=== PATIENT | male | born 1990 | race Caucasian/White ===

== ENCOUNTER 2017-05-01 13:19 | Emergency (ER) | payer BC, OTHER ==
[2017-05-01] MEDS ORDERED: Ketorolac 60 MG/2 ML SDV IM ONE (13:34)
--- NOTE | 2017-05-01 14:02 | EDM.PDOC ---
ED HPI GENERAL MEDICAL PROBLEM - General Chief Complaint: Back Pain or Injury Stated Complaint: PT HAS BACK PAINS Time Seen by Provider: 05/01/17 13:35 Source of Information: Reports: Patient History Limitations: Reports: No Limitations - History of Present Illness INITIAL COMMENTS - FREE TEXT/NARRATIVE: History of present illness: [26 show male comes in complaining of low back pain. Indicates he's been struggling a couple weeks with that and that he had been seen and instructed he needs an MRI. Patient indicates he has a bad seat in his truck at work and that if his beta progressively worse.] Review of systems: As per history of present illness and below otherwise all systems reviewed and negative. Past medical history: As per history of present illness and as reviewed below otherwise noncontributory. Surgical history: As per history of present illness and as reviewed below otherwise noncontributory. Social history: No reported history of drug or alcohol abuse. Family history: As per history of present illness and as reviewed below otherwise noncontributory. Physical exam: HEENT: Atraumatic, normocephalic, pupils reactive, negative for conjunctival pallor or scleral icterus, mucous membranes moist, throat clear, neck supple, nontender, trachea midline. Lungs: Clear to auscultation, breath sounds equal bilaterally, chest nontender. Heart: S1S2, regular, negative for clicks, rubs, or JVD. Abdomen: Soft, nondistended, nontender. Negative for masses or hepatosplenomegaly. Negative for costovertebral tenderness. Pelvis: Stable nontender. Genitourinary: Deferred. Rectal: Deferred. Extremities: Atraumatic, negative for cords or calf pain. Neurovascular unremarkable. Neuro: Awake, alert, oriented. Cranial nerves II through XII unremarkable. Cerebellum unremarkable. Motor and sensory unremarkable throughout. Exam nonfocal. Global assessment is benign save the subjective complaint as noted in history of present illness patient does ambulate with a little bit of a guarded gait and sits at an angle while dialoguing Diagnostics: [] Therapeutics: [Toradol, Norflex] Impression: [Low back pain] Plan: [Prescription for Norflex meloxicam] Definitive disposition and diagnosis as appropriate pending reevaluation and review of above. Right Lower Back Pain Score (Numeric/FACES): 5 - Related Data Allergies Allergy/AdvReac Type Severity Reaction Status Date / Time No Known Allergies Allergy Verified 05/01/17 13:33 Home Meds: Home Meds Meloxicam 7.5 mg PO BID #30 tablet 05/01/17 [Rx] Orphenadrine [Norflex] 100 mg PO BID #28 tab.er 05/01/17 [Rx] Past Medical History Neurological History: Reports: Other (See Below) Other Neuro History: hx of c5 c6 spinus process fractures Social & Family History - Family History Family Medical History: Noncontributory - Tobacco Use Smoking Status *Q: Current Every Day Smoker Years of Tobacco use: 5 Packs/Tins Daily: 0.5 - Caffeine Use Caffeine Use: Reports: None - Recreational Drug Use Recreational Drug Use: No ED ROS GENERAL - Review of Systems Review Of Systems: See Below (See history of present illness) ED EXAM,LOWER BACK PAIN/INJURY - Physical Exam Exam: See Below (See history of present illness) Course - Vital Signs Last Recorded V/S: Last Vital Signs Temp 36.6 C 05/01/17 13:33 Pulse 87 05/01/17 13:33 Resp 16 05/01/17 13:33 BP 138/96 H 05/01/17 13:33 Pulse Ox 98 05/01/17 13:33 - Orders/Labs/Meds Meds: Medications Discontinued Medications Generic Name Dose Route Start Last Admin Trade Name Franco PRN Reason Stop Dose Admin Ketorolac Tromethamine 60 mg 05/01/17 13:34 Toradol IM 05/01/17 13:35 ONETIME ONE Orphenadrine Citrate 60 mg 05/01/17 13:45 05/01/17 13:51 Norflex IM 05/01/17 13:46 60 mg ONETIME ONE Administration Departure - Departure Time of Disposition: 14:18 Disposition: Home, Self-Care 01 Condition: Good Clinical Impression: Low back pain - Discharge Information Instructions: Back Pain, Adult, [id number] Forms: ED Department Discharge Additional Instructions: The following information is given to patients seen in the emergency department who are being discharged to home. This information is to outline your options for follow-up care. We provide all patients seen in our emergency department with a follow-up referral. The need for follow-up, as well as the timing and circumstances, are variable depending upon the specifics of your emergency department visit. If you don't have a primary care physician on staff, we will provide you with a referral. We always advise you to contact your personal physician following an emergency department visit to inform them of the circumstance of the visit and for follow-up with them and/or the need for any referrals to a consulting specialist. The emergency department will also refer you to a specialist when appropriate. This referral assures that you have the opportunity for follow-up care with a specialist. All of these measure are taken in an effort to provide you with optimal care, which includes your follow-up. Under all circumstances we always encourage you to contact your private physician who remains a resource for coordinating your care. When calling for follow-up care, please make the office aware that this follow-up is from your recent emergency room visit. If for any reason you are refused follow-up, please contact the [facility] Emergency Department at and asked to speak to the emergency department charge nurse. Take medication as directed Follow-up with PCP in 1-2 days Return to ED as needed as discussed As discussed you need a referral for prior authorization for an MRI we are providing you with a PCP contact so that she may pursue further diagnostics and health maintenance [facility] [address] [place] [id number]
[2017-05-01 14:56] VITALS: BP 120/77
== END 2017-05-01 14:52 | disposition home or self-care (01) ==
LOC: MW.ED 13:19
DX: M54.5 Low back pain (principal); F17.210 Nicotine dependence, cigarettes, uncomplicated
CPT/HCPCS: 96372; 99283; J1885; J2360; 99282

== ENCOUNTER 2017-12-06 21:23 | Emergency (ER) | payer BC ==
--- NOTE | 2017-12-06 21:55 | EDM.PDOC ---
ED HPI GENERAL MEDICAL PROBLEM - General Chief Complaint: Lower Extremity Injury/Pain Stated Complaint: PT RT LEG HURT Time Seen by Provider: 12/06/17 21:29 Source of Information: Reports: Patient History Limitations: Reports: No Limitations - History of Present Illness INITIAL COMMENTS - FREE TEXT/NARRATIVE: HISTORY AND PHYSICAL: History of present illness: [Patient comes to the emergency room complaining of right leg pain. He has pain to his down into his foot. He states that the pain is irritating and constant and feels like a fullness or heavy sensation. He denies pain in his calf. No numbness or tingling. He has not appreciated any swelling, areas of redness or warmth. No fever or chills. No shortness of breath or difficulty breathing. He had two episodes of sharp pain in his left mid back over his shoulder blade area , causing him to scream out in pain. Episodes were 5 seconds apart, and have since resolved. 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 He has smoked cigarettes for several years. Patient was on [employer] earlier this evening exploring causes of leg pain, and read about blood clots, which he is concerned he may have. ] Review of systems: As per history of present illness and below otherwise all systems reviewed and negative. Past medical history: As per history of present illness and as reviewed below otherwise noncontributory. Surgical history: As per history of present illness and as reviewed below otherwise noncontributory. Social history: No reported history of drug or alcohol abuse. Family history: As per history of present illness and as reviewed below otherwise noncontributory. Physical exam: HEENT: Atraumatic, normocephalic. Oral mucous membrane are pink and moist. Lungs: Clear to auscultation, breath sounds equal bilaterally Heart: S1S2, regular rate and rhythm. Extremities: Atraumatic in appearance. No swelling or erythema appreciated. Negative Leida's sign. Leg is nontender to palpation. Pedal pulses 2+. Neurovascular unremarkable. Neuro: Awake, alert, oriented. Motor and sensory unremarkable throughout. Exam nonfocal. Diagnostics: [D-dimer] Impression: [R leg pain] Plan: [Discussed w/ patient that his d-dimer is negative which indicates that he doesn 't have a blood clot. Recommend that he follow up w/ PCP. Strict return precautions are reviewed. Pt is in agreement w/ today's plan. ] Definitive disposition and diagnosis as appropriate pending reevaluation and review of above. right lower extremity Pain Score (Numeric/FACES): 6 - Related Data Allergies Allergy/AdvReac Type Severity Reaction Status Date / Time No Known Allergies Allergy Verified 12/06/17 21:40 Home Meds: Home Meds . [No Known Home Meds] 12/06/17 [History] Past Medical History - Past Health History Medical/Surgical History: Denies Medical/Surgical History Neurological History: Reports: Other (See Below) Other Neuro History: hx of c5 c6 spinus process fractures - Past Surgical History HEENT Surgical History: Reports: Eye Surgery Social & Family History - Family History Family Medical History: Noncontributory - Tobacco Use Smoking Status *Q: Current Every Day Smoker Years of Tobacco use: 10 Packs/Tins Daily: 1 - Caffeine Use Caffeine Use: Reports: None - Recreational Drug Use Recreational Drug Use: No Review of Systems - Review of Systems Review Of Systems: ROS reveals no pertinent complaints other than HPI. ED EXAM, GENERAL - Physical Exam Exam: See Below Course - Vital Signs Last Recorded V/S: Last Vital Signs Temp 97.3 F 12/06/17 21:23 Pulse 88 12/06/17 21:23 Resp 16 12/06/17 21:23 BP 122/82 12/06/17 21:23 Pulse Ox 97 12/06/17 21:23 - Orders/Labs/Meds Labs: Laboratory Tests 12/06/17 Range/Units 22:11 D-Dimer, Quantitative 0.22 (0.0-0.52) mg/LFEU Departure - Departure Time of Disposition: 22:30 Disposition: Home, Self-Care 01 Condition: Good Clinical Impression: Right leg pain - Discharge Information Referrals: PCP,None [Primary Care Provider] - Forms: ED Department Discharge Additional Instructions: The following information is given to patients seen in the emergency department who are being discharged to home. This information is to outline your options for follow-up care. We provide all patients seen in our emergency department with a follow-up referral. The need for follow-up, as well as the timing and circumstances, are variable depending upon the specifics of your emergency department visit. If you don't have a primary care physician on staff, we will provide you with a referral. We always advise you to contact your personal physician following an emergency department visit to inform them of the circumstance of the visit and for follow-up with them and/or the need for any referrals to a consulting specialist. The emergency department will also refer you to a specialist when appropriate. This referral assures that you have the opportunity for follow-up care with a specialist. All of these measure are taken in an effort to provide you with optimal care, which includes your follow-up. Under all circumstances we always encourage you to contact your private physician who remains a resource for coordinating your care. When calling for follow-up care, please make the office aware that this follow-up is from your recent emergency room visit. If for any reason you are refused follow-up, please contact the [facility] emergency department at and asked to speak to the emergency department charge nurse. [address] [id number] Establish care with a local primary care provider in follow-up there in the next 48-72 hours. Tylenol or ibuprofen as needed for leg pain. Return to ER as needed as discussed.
[2017-12-06 22:53] VITALS: BP 117/81
== END 2017-12-06 22:54 | disposition home or self-care (01) ==
LOC: MW.ED 21:23
DX: M79.604 Pain in right leg (principal); F17.210 Nicotine dependence, cigarettes, uncomplicated
CPT/HCPCS: 36415; 85379; 99283